=== PATIENT | female | born 1990 | race Hispanic/Latino ===

== ENCOUNTER 2018-12-19 16:15 | Emergency (ER) | payer OTHER ==
[2018-12-19 17:16] LABS: Absolute Lymphocytes (CBC) 1.7 K/uL (0.7-4.9); Basophils % 0.2 % (0-1.3); Hematocrit 35.2 % (36.0-45.0); Lymphocytes % 19.3 % (15.3-44.8); MPV 8.4 fL (7.6-11.3); RBC Red Blood Cell Count 4.51 M/uL (3.86-4.86)
[2018-12-19 17:27] LABS: ALT/SGPT 16 U/L (12-78); AST/SGOT 11 U/L (15-37); Albumin 3.7 g/dL (3.4-5.0); Alkaline Phosphatase 73 U/L (45-117); BUN Blood Urea Nitrogen 5 mg/dL (7-18); Bicarbonate 25 mmol/L (21-32); Bilirubin Direct < 0.1 mg/dL (0-0.2); Bilirubin Total 0.3 mg/dL (0.2-1.0); Glucose Level 86 mg/dL (74-106); Lipase 171 U/L (73-393); Potassium 3.8 mmol/L (3.5-5.1); Protein, Total 8.1 g/dL (6.4-8.2); Sodium Level 140 mmol/L (136-145)
--- NOTE | 2018-12-19 17:59 | EDPHYS ---
Physician Documentation [facility] Name: Kelsie Zapata Age: 28 yrs Sex: Female : 1990 Arrival Date: 12/19/2018 Time: 16:18 Bed 24 Private MD: None, None ED Physician Spencer Montanez HPI: 12/19 16:58 This 28 yrs old Female presents to ER via Ambulatory with complaints of jr8 Abdominal Pain. 16:58 The patient presents with abdominal pain in the right upper quadrant. Onset: The jr8 symptoms/episode began/occurred suddenly, 1 hour(s) ago. The symptoms radiate to right back. Associated signs and symptoms: Pertinent positives: dysuria, urinary frequency, Pertinent negatives: nausea, vomiting, and diarrhea, fever, vaginal discharge. The symptoms are described as crampy. Modifying factors: The symptoms are alleviated by nothing, the symptoms are aggravated by pressure. Severity of pain: At its worst the pain was moderate in the emergency department the pain is unchanged is a 5 / 10. The patient has not experienced similar symptoms in the past. The patient has not recently seen a physician. Reports sudden onset of RUQ abdominal pain one hour ago that radiates around to back. Denies NVD, fever, or association of onset of pain with food intake. Also reports urinary frequency and dysuria for several days that has improved with drinking cranberry juice. 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 - Social history:: Smoking status: Patient/guardian denies using tobacco, Patient uses alcohol, weekly. 1-2 beers every other night. - Ebola Screening: : Patient negative for fever greater than or equal to 101.5 degrees Fahrenheit, and additional compatible Ebola Virus Disease symptoms Patient denies exposure to infectious person Patient denies travel to an Ebola-affected area in the 21 days before illness onset No symptoms or risks identified at this time. ROS: 16:58 Constitutional: Negative for fever, chills, and weight loss, Cardiovascular: Negative jr8 for chest pain, palpitations, and edema, Respiratory: Negative for shortness of breath, cough, wheezing, and pleuritic chest pain, MS/Extremity: Negative for injury and deformity, Skin: Negative for injury, rash, and discoloration, Neuro: Negative for headache, weakness, numbness, tingling, and seizure. 16:58 Abdomen/GI: Positive for abdominal pain, Negative for nausea, vomiting, and diarrhea, constipation. 16:58 Back: Positive for radiated pain, Negative for injury or acute deformity, decreased range of motion. 16:58 : Positive for urinary symptoms, urinary frequency, burning with urination, Negative for hematuria, pelvic pain, flank pain, vaginal bleeding, vaginal discharge. Exam: 16:58 Constitutional: This is a well developed, well nourished patient who is awake, alert, jr8 and in no acute distress. Head/Face: Normocephalic, atraumatic. Cardiovascular: Regular rate and rhythm with a normal S1 and S2. No gallops, murmurs, or rubs. Normal PMI, no JVD. No pulse deficits. Respiratory: Lungs have equal breath sounds bilaterally, clear to auscultation and percussion. No rales, rhonchi or wheezes noted. No increased work of breathing, no retractions or nasal flaring. Back: No spinal tenderness. No costovertebral tenderness. Full range of motion. Skin: Warm, dry with normal turgor. Normal color with no rashes, no lesions, and no evidence of cellulitis. MS/ Extremity: Pulses equal, no cyanosis. Neurovascular intact. Full, normal range of motion. Neuro: Awake and alert, GCS 15, oriented to person, place, time, and situation. Cranial nerves II-XII grossly intact. Motor strength 5/5 in all extremities. Sensory grossly intact. Cerebellar exam normal. Normal gait. 16:58 Abdomen/GI: Inspection: abdomen appears normal, Bowel sounds: normal, Palpation: soft, in all quadrants, mild abdominal tenderness, in the right upper quadrant, no appreciated organomegaly, Indicators: Cisse's sign is negative. 16:58 Back: CVA tenderness, is absent. Vital Signs: 16:22 BP 150 / 90; Pulse 99; Resp 20; Temp 97.6; Pulse Ox 100% on R/A; Weight 61.23 kg; aj Height 5 ft. 2 in. (157.48 cm); 17:44 BP 117 / 82; Pulse 82; Resp 18; Pulse Ox 100% on R/A; mg2 18:13 BP 110 / 66; Pulse 88; Resp 18; Temp 98; Pulse Ox 100% on R/A; mg2 16:22 Body Mass Index 24.69 (61.23 kg, 157.48 cm) aj MDM: 16:27 Patient medically screened. 17:57 Data reviewed: vital signs, nurses notes, lab test result(s), radiologic studies, [facility] ultrasound, and as a result, I will discharge patient. Data interpreted: Pulse oximetry: on room air is 100 %. Interpretation: normal. 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 12/19 16:50 Order name: Basic Metabolic Panel; Complete Time: 17:30 12/19 16:50 Order name: CBC with Diff; Complete Time: 17:39 12/19 16:50 Order name: Creatinine for Radiology; Complete Time: 17:30 12/19 16:50 Order name: Hepatic Function; Complete Time: 17:30 12/19 16:50 Order name: Lipase; Complete Time: 17:30 12/19 16:50 Order name: IV Saline Lock; Complete Time: 16:58 12/19 16:50 Order name: Labs collected and sent; Complete Time: 16:58 12/19 16:50 Order name: Urine Dipstick-Ancillary (obtain specimen); Complete Time: 16:58 12/19 16:57 Order name: US Abdomen Limited; Complete Time: 18:20 12/19 17:10 Order name: Test, Serum; Complete Time: 17:50 12/19 17:51 Order name: Urine Microscopic Only; Complete Time: 18:20 12/19 17:57 Order name: Urine Culture 12/19 16:50 Order name: Urine Test (obtain specimen); Complete Time: 16:58 jr8 Administered Medications: No medications were administered Disposition: 18:21 Co-signature as Attending Physician, Spencer Montanez MD. rn Disposition: 12/19/18 17:58 Discharged to Home. Impression: Urinary tract infection, site not specified, Right upper quadrant abdominal tenderness. - Condition is Stable. - Discharge Instructions: Abdominal Pain, Adult, Urinary Tract Infection, Adult. - Prescriptions for Macrobid 100 mg Oral Capsule - take 1 capsule by ORAL route every 12 hours for 7 days; 14 capsule. - Medication Reconciliation Form, Thank You Letter, Antibiotic Education, Prescription Opioid Use form. - Follow up: Shun Lindo MD; When: 5 - 6 days; Reason: Recheck today's complaints, Continuance of care, Re-evaluation by your physician. - Problem is new. - Symptoms have improved. Signatures: Dispatcher [employer] [facility] Noni Rodrigues RN RN Spencer Arevalo MD MD rn Roszak, Josh, PA PA jr8 Francesco Poole RN RN mg2 Corrections: (The following items were deleted from the chart) 17:13 17:03 Test, Urine ordered. [facility] EDVT 17:29 17:13 Test Serum, [place] ordered. [facility] EDVT 18:14 17:58 12/19/2018 17:58 Discharged to Home. Impression: Urinary tract infection, site mg2 not specified; Right upper quadrant abdominal tenderness. Condition is Stable. Forms are Medication Reconciliation Form, Thank You Letter, Antibiotic Education, Prescription Opioid Use. Follow up: Shun Lindo; When: 5 - 6 days; Reason: Recheck today's complaints, Continuance of care, Re-evaluation by your physician. Problem is new. Symptoms have improved. jr8
--- NOTE | 2018-12-19 17:59 | ER ---
Nurse's Notes [facility] Name: Kelsie Zapata Age: 28 yrs Sex: Female : 1990 Arrival Date: 12/19/2018 Time: 16:18 Bed 24 Private MD: None, None Diagnosis: Urinary tract infection, site not specified;Right upper quadrant abdominal tenderness Presentation: 12/19 16:21 Presenting complaint: Patient states: Right flank pain that started 1 hour ago. Patient aj report recent UTI she is treating with increased fluids. Transition of care: patient was not received from another setting of care. Onset of symptoms was December 19, 2018. Risk Assessment: Do you want to hurt yourself or someone else? Patient reports no desire to harm self or others. Initial Sepsis Screen: Does the patient meet any 2 criteria? No. Patient's initial sepsis screen is negative. Does the patient have a suspected source of infection? No. Patient's initial sepsis screen is negative. Care prior to arrival: None. 16:21 Method Of Arrival: Ambulatory 16:21 Acuity: ANA MARIA 3 aj Triage Assessment: 16:22 General: Appears in no apparent distress. comfortable, Behavior is calm, cooperative, aj appropriate for age. Pain: Complains of pain in posterior aspect of right lateral abdomen and anterior aspect of right lateral abdomen. Neuro: Level of Consciousness is awake, alert, obeys commands, Oriented to person, place, time, situation, Appropriate for age. Respiratory: Airway is patent Respiratory effort is even, unlabored, Respiratory pattern is regular, symmetrical. GI:. : Reports pain in right flank(s). Derm: Skin is intact, is healthy with good turgor, Skin is pink, warm \T\ dry. normal. 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 - Social history:: Smoking status: Patient/guardian denies using tobacco, Patient uses alcohol, weekly. 1-2 beers every other night. - Ebola Screening: : Patient negative for fever greater than or equal to 101.5 degrees Fahrenheit, and additional compatible Ebola Virus Disease symptoms Patient denies exposure to infectious person Patient denies travel to an Ebola-affected area in the 21 days before illness onset No symptoms or risks identified at this time. Screenin:59 Abuse screen: Denies threats or abuse. Denies injuries from another. Nutritional mg2 screening: No deficits noted. Tuberculosis screening: No symptoms or risk factors identified. Fall Risk IV access (20 points). Assessment: 16:59 General: Appears in no apparent distress. comfortable, Behavior is calm, cooperative. mg2 Pain: Complains of pain in abdomen Pain does not radiate. Pain currently is 4 out of 10 on a pain scale. Quality of pain is described as aching, Pain began gradually, Is intermittent. Neuro: Level of Consciousness is awake, alert, obeys commands, Oriented to person, place, time, situation. Cardiovascular: Capillary refill < 3 seconds Patient's skin is warm and dry. Respiratory: Airway is patent Respiratory effort is even, unlabored, Respiratory pattern is regular, symmetrical. GI: Bowel sounds present X 4 quads. Abd is soft and non tender. : Urine is see urine dip. EENT: No signs and/or symptoms were reported regarding the EENT system. Derm: Skin is intact, is healthy with good turgor, Skin is pink, warm \T\ dry. normal. Musculoskeletal: Circulation, motion, and sensation intact. Capillary refill < 3 seconds. 17:44 Reassessment: ultrasound at bedside now. mg2 18:13 Reassessment: Patient appears in no apparent distress at this time. mg2 Vital Signs: 16:22 BP 150 / 90; Pulse 99; Resp 20; Temp 97.6; Pulse Ox 100% on R/A; Weight 61.23 kg; aj Height 5 ft. 2 in. (157.48 cm); 17:44 BP 117 / 82; Pulse 82; Resp 18; Pulse Ox 100% on R/A; mg2 18:13 BP 110 / 66; Pulse 88; Resp 18; Temp 98; Pulse Ox 100% on R/A; mg2 16:22 Body Mass Index 24.69 (61.23 kg, 157.48 cm) aj ED Course: 16:18 Patient arrived in ED. dl4 16:19 None, None is Private Physician. dl4 16:21 Triage completed. aj 16:22 Arm band placed on right wrist. Patient placed in an exam room. aj 16:26 Fernando Yung PA is PHCP. jr8 16:26 Spencer Montanez MD is Attending Physician. jr8 16:30 Francesco Poole, RN is Primary Nurse. mg2 16:58 No provider procedures requiring assistance completed. Inserted saline lock: 20 gauge mg2 in right antecubital area, using aseptic technique. Blood collected. 17:01 Patient has correct armband on for positive identification. Door closed. mg2 17:57 Shun Lindo MD is Referral Physician. jr8 18:02 Abdomen Limited In Process Unspecified. EDMS 18:14 IV discontinued, intact, bleeding controlled, No redness/swelling at site. Pressure mg2 dressing applied. Administered Medications: No medications were administered Outcome: 17:58 Discharge ordered by . jr8 18:14 Discharged to home ambulatory. mg2 18:14 Condition: stable 18:14 Discharge instructions given to Instructed on discharge instructions, follow up and referral plans. medication usage, Demonstrated understanding of instructions, follow-up care, medications, Prescriptions given X 1. 18:14 Patient left the ED. mg2 Addendum: 12/22/2018 07:46 Addendum: Culture Results: Positive urine culture. No further action required. Bacteria a a5 sensitive to prescribed antibiotic. Signatures: Dispatcher [employer] [facility] Noni Rodrigues RN RN Hollie Wilson RN RN aa5 Fernando Yung PA PA jr8 Francesco Poole, LUCILLE RN mg2 [place]o [place] dl4 Corrections: (The following items were deleted from the chart) 12/19 17:52 17:44 Pulse 82bpm; Resp 18bpm; Pulse Ox 100% RA; mg2 mg2
--- NOTE | 2018-12-19 18:08 | RAD REPORT ---
EXAM DESCRIPTION: US - Abdomen Exam Limited - 12/19/2018 6:01 pm CLINICAL HISTORY: r/o GB;Abd pain COMPARISON: No comparisons FINDINGS: The gallbladder demonstrates no gallstones. No pericholecystic fluid or gallbladder wall t hickening. The common bile duct is normal measuring 3 mm. The liver demonstrates no findings of intrahepatic biliary dilatation. IMPRESSION: Unremarkable examination.
[2018-12-19 18:10] LABS: Urine Bacteria 20-50 /HPF (<20); Urine RBC <5 /HPF (NONE SEEN)
[2018-12-19 18:11] LABS: Urine Culture Reflex Order REFLEXED
[2018-12-19 18:56] VITALS: O2SAT 100
[2018-12-19 18:58] VITALS: BP 110/66; TEMP 98
== END 2018-12-19 18:14 | disposition home or self-care (01) ==
LOC: ER 16:15
DX: N39.0 Urinary tract infection, site not specified (principal); R10.11 Right upper quadrant pain; F32.9 Major depressive disorder, single episode, unspecified; F41.9 Anxiety disorder, unspecified
CPT/HCPCS: 36415; 76705; 80048; 80076; 81015; 83690; 84703; 85025; 87077; 87086; 87088; 87186; 99284